=== PATIENT | female | born 1975 | race Caucasian/White ===

== ENCOUNTER 2022-08-29 07:13 | Day surgery (SDC) | payer SELFPAY ==
[~2022-08-29] VITALS: Ht 165.1 cm; Wt 112.2 kg
[~2022-08-29 07:13] MED LIST: CYMBALTA 60MG60 MG PO; LORTAB 5/500 501 TAB PO
[2022-08-29] MEDS ORDERED: PRILOTC (08:06)
[2022-08-29] MEDS ORDERED: TENORMIN 2525 MG/TAB PO (08:06)
[2022-08-29] MEDS ORDERED: FLONASE SENSIM9.9 ML NS (08:07)
[2022-08-29] MEDS ORDERED: FIBERCON (08:08)
[2022-08-29] MEDS ORDERED: MULTI VITAMINS1 TAB PO (08:10)
[2022-08-29] MEDS ORDERED: PROBIOTIC 2 BI1 EACH PO (08:10)
[2022-08-29] MEDS ORDERED: MASON NATURAL2000 IU PO (08:11)
[2022-08-29] MEDS ORDERED: PROVENTIL0.09 MG/A1 IH (08:11)
[2022-08-29 08:25] VITALS: BP 138/90; PULSE 65; TEMP 98.3
[2022-08-29 09:35] VITALS: BP 112/74; PULSE 95
--- NOTE | 2022-08-29 09:35 | NUR ---
PATIENT RETURNS TO BAY [facility] PER CART AND TRANSFERS FROM CART TO RECLINER. IV INFUSES. SPOUSE IN ROOM. DENIES DISCOMFORT.
--- NOTE | 2022-08-29 09:35 | NUR ---
PATIENT RETURNS TO BAY [facility] PER CART AND TRANSFERS FROM CART TO RECLINER. IV INFUSES. SPOUSE IN ROOM. DENIES DISCOMFORT.
[2022-08-29 09:50] VITALS: BP 118/79; PULSE 60
--- NOTE | 2022-08-29 09:50 | NUR ---
DR. MCKEON IN THE ROOM AND TALKS WITH THE PATIENT. ALL QUESTIONS ANSWERED.
--- NOTE | 2022-08-29 09:50 | NUR ---
DR. MCKEON IN THE ROOM AND TALKS WITH THE PATIENT. ALL QUESTIONS ANSWERED.
--- NOTE | 2022-08-29 10:05 | NUR ---
CONTINUES TO TALK WITH DR. MCKEON AND THE SPOUSE
--- NOTE | 2022-08-29 10:05 | NUR ---
CONTINUES TO TALK WITH DR. MCKEON AND THE SPOUSE
[2022-08-29 10:20] VITALS: BP 113/70; PULSE 66
--- NOTE | 2022-08-29 10:20 | NUR ---
EATING APPLESAUCE AND IV TO INT. TOLERATES WATER.
--- NOTE | 2022-08-29 10:20 | NUR ---
EATING APPLESAUCE AND IV TO INT. TOLERATES WATER.
[2022-08-29 10:30] VITALS: BP 117/76; PULSE 52
--- NOTE | 2022-08-29 10:49 | NUR ---
IV DISCONTINUED AND SITE IS FREE OF REDNESS.
--- NOTE | 2022-08-29 10:49 | NUR ---
IV DISCONTINUED AND SITE IS FREE OF REDNESS.
--- NOTE | 2022-08-29 10:51 | NUR ---
IV DISCONTINUED AND SITE IS FREE OF REDNESS. GIVEN DISMISSAL INSTRUCTIONS VOICES UNDERSTANDING OF THESE. PATIENT DISMISSED TO HOME DRIVEN BY SPOUSE AND TAKEN TO PRIVATE VEHICLE PER WHEELCHAIR.
== END 2022-08-29 10:51 | disposition home or self-care (01) ==
LOC: SDCO 07:13
DX: Z12.11 Encounter for screening for malignant neoplasm of colon (principal); D12.5 Benign neoplasm of sigmoid colon; K29.50 Unspecified chronic gastritis without bleeding; K21.00 Gastro-esophageal reflux disease with esophagitis, without bleeding; K44.9 Diaphragmatic hernia without obstruction or gangrene; K31.7 Polyp of stomach and duodenum
CPT/HCPCS: J2704; J7030